=== PATIENT | female | born 1975 | race Caucasian/White ===

== ENCOUNTER 2017-10-25 13:58 | Emergency (ER) | payer MEDICARE, MEDICAID ==
[2017-10-25 15:22] LABS: Pregu Control Background? CLEAR/WHITE (CLR/WHITE); Pregu Control Bar Appear? YES (CONTROL BAR); Specific Gravity 1.029 (1.002-1.036)
[2017-10-25 15:23] LABS: Pregnancy Test - Urine (BHCG) Negative (Negative)
[2017-10-25 16:26] LABS: #Eosinphils 0.1 thou/uL (0.0-0.7); #Lymphocytes 2.6 thou/uL (1.20-3.40); #Monocytes 0.6 thou/uL (0.11-0.59); #Neutrophils 5.4 thou/uL (1.40-6.50); %Basophils 0.4 % (0.0-1.0); %Eosinophils 0.6 % (0.0-10.0); %Lymphocytes 30.2 % (21.0-51.0); %Monocytes 7.1 % (0.0-10.0); %Neutrophils 61.8 % (42.0-75.0); Hemoglobin 13.1 g/dL (12.0-16.0); Mean Corpuscular HGB CONC 33.4 g/dL (32.0-36.0); Mean Corpuscular Volume 95.8 fL (78.0-98.0); Mean Platelet Volume 7.2 fL (7.4-10.4); Platelet Count 323 thou/uL (130-400); White Blood Cell (WBC) Count 8.8 thou/uL (4.8-10.8)
[2017-10-25 16:41] LABS: BHCG - Serum Negative (NEGATIVE); Pregs Control Background? CLEAR/WHITE (CLR/WHITE); Pregs Control Bar Appear? YES (CONTROL BAR)
[2017-10-25 16:46] LABS: Bilirubin Negative (Negative); Blood, Urine Negative (Negative); Clarity CLOUDY (Clear); Glucose, Urine (Dipstick) Negative (Negative); Leukocyte Negative (Negative); Nitrite Negative (Negative); Protein, Urine (Dipstick) Negative (Neg-Trace); Specific Gravity, Urine 1.017 (1.002-1.036)
[2017-10-25 16:48] LABS: ALT (SGPT) 38 U/L (8-55); AST (SGOT) 26 U/L (5-34); Acetaminophen Less than 6.0 mcg/mL (10.0-30.0); Albumin 4.1 g/dL (3.5-5.0); Alcohol Less than 10 mg/dL (Less than 10); Alkaline Phosphatase 90 U/L (40-150); Anion Gap 8 mmol/L (10-20); BUN (Urea Nitrogen) 14 mg/dL (7.0-18.7); Bilirubin, Total 0.4 mg/dL (0.2-1.2); Calc. Creatinine Clearance 0 mL/min (70-130); Calcium 8.9 mg/dL (7.8-10.44); Carbon Dioxide 23 mmol/L (22-29); Chloride 110 mmol/L (98-107); Estimated GFR-MDRD 82; Glucose 82 mg/dL (70-105); Potassium 3.3 mmol/L (3.5-5.1); Protein, Total 7.1 g/dL (6.0-8.3); Salicylate Less than 8.0 mg/dL (15.0-30.0); Sodium 138 mmol/L (136-145)
[2017-10-25 16:56] LABS: Amphetamine Not Detected (NotDetected); Barbiturates Screen Not Detected (NotDetected); Benzodiazepine Screen Not Detected (NotDetected); Cocaine Metabolite Screen Not Detected (NotDetected); Medtox Reader # READER 4; Methadone Not Detected (NotDetected); Methamphetamine Not Detected (NotDetected); Opiate Screen Not Detected (NotDetected); Oxycodone Screen Not Detected (NotDetected); Phencyclidine (PCP) Not Detected (NotDetected); THC/Cannabinoid Screen Not Detected (NotDetected); Tricyclic Screen Not Detected (NotDetected)
[2017-10-25 16:57] LABS: Medtox Control Line Valid? VALID (VALID)
--- NOTE | 2017-10-25 17:05 | CT ---
CT BRAIN WITHOUT CONTRAST: 10/25/17 HISTORY: Altered mental status. FINDINGS: No evidence of infarct, hemorrhage, midline shift, or abnormal extra-axial fluid collections are seen . The bony calvarium is intact. The visualized paranasal sinuses and mastoid air cells are well aerated . IMPRESSION: No CT evidence of acute intracranial process. POS: [facility]
[2017-10-25] MEDS ORDERED: hydrOXYzine 25 MG TAB ONE (20:48)
[2017-10-25] MEDS ORDERED: Ziprasidone 20 MG CAP ONE (20:48)
--- NOTE | 2017-10-26 00:32 | SS ---
LABOR AND DELIVERY TRIAGE NOTE DATE OF EVALUATION: 10/25/2017 EVALUATING PHYSICIAN: Mark Barclay M.D. CHIEF COMPLAINT: Regular contractions since last night. HISTORY OF PRESENT ILLNESS: Ms. Salazar is a 42-year-old white reportedly G8, P3, AB 4 with an unkn own estimated date of confinement who presents complaining of uterine contractions and nausea and vom iting since last night. She states that she is with twins and that she is due" any day now. " Apparently, she reports that she sees a Dr. Saunders in [place], [place]. Of note, is the fact that she was recently discharged from [facility]. She denies vaginal bleeding or r uptured membranes. PAST OBSTETRICAL HISTORY: Reportedly remarkable for 3 deliveries and 4 miscarriages. PAST MEDICAL HISTORY: 1. Bipolar/schizophrenia. 2. Hypertension. 3. Asthma. CURRENT MEDICATIONS: The patient states that she is on a blood pressure medication, but she does not know her other medications at the present time. Unknown and she cannot list them. PAST SURGICAL HISTORY: Unremarkable. ALLERGIES: PENICILLIN, BACTRIM and STRAWBERRIES. SOCIAL HISTORY: She denies tobacco, alcohol, or drug use. FAMILY HISTORY: Denies breast or pelvic malignancy. PHYSICAL EXAMINATION: VITAL SIGNS: In triage today her vital signs are stable. She is afebrile. GENERAL: She is in no apparent distress. ABDOMEN: She is obese, but there is no evidence of a fundus that extends past the umbilicus. I can palpate no masses in her abdomen. heart tones cannot be obtained. Urine test returns negative. ASSESSMENT: Pseudocyesis. PLAN: At this time, I have notified the ER and she will return to the ER for evaluation of her psych otic state.
--- NOTE | 2017-10-29 10:53 | EKG ---
Test Reason : MENTAL EVAL Blood Pressure : / mmHG Vent. Rate : 077 BPM Atrial Rate : 077 BPM P-R Int : 148 ms QRS Dur : 090 ms QT Int : 406 ms P-R-T Axes : 029 -09 031 degrees QTc Int : 459 ms Normal sinus rhythm Minimal voltage criteria for LVH, may be normal variant Borderline ECG Confirmed by ACE IGLESIAS, ABBIE ([id number]), non linear editor DENEA JONES ([id number]) on 10/29/2017 10:52:51 AM Referred By: Confirmed By:ABBIE BELLO MD
== END 2017-10-25 22:52 ==
LOC: ERS 13:58 → L&D/OP 13:58 → EDSTATUS 15:38 → ERS 22:52
DX: F23 Brief psychotic disorder (principal); R45.851 Suicidal ideations; E78.5 Hyperlipidemia, unspecified; E78.1 Pure hyperglyceridemia; I10 Essential (primary) hypertension; J45.909 Unspecified asthma, uncomplicated; E66.9 Obesity, unspecified; F31.9 Bipolar disorder, unspecified; Z79.899 Other long term (current) drug therapy
CPT/HCPCS: 36415; 70450; 80053; 80306; 80307; 81003; 81025; 84443; 84703; 85025; 93005; 94760; 99283